=== PATIENT | female | born 2000 | race African-American/Black ===

== ENCOUNTER 2022-01-04 17:58 | Emergency (ER) | payer OTHER, SELFPAY ==
--- NOTE | ~2022-01-04 | US_ITS ---
EXAMINATION: US OB <= 14 weeks fetus INDICATION: Ectopic . Syncope, cramping, light spotting. TECHNIQUE: Sonography of the pelvis was performed by transabdominal and transvaginal techniques. COMPARISON: None. RESULT: LMP October 2021. Uterus: - Orientation: Anteverted - Size: 9.7 x 6.2 x 6.4 cm - Myometrium: Homogeneous echogenicity . Gestation: - Intrauterine gestational sac: Single present - Yolk sac: Present, not measured. - Embryo: Single present - [place] rump length: 0.9 cm, corresponding gestational age 7 weeks, 0 days -Gestational heart rate: present 130 bpm -Subgestational hematoma: Absent Right ovary: - Size : 4.3 x 1.4 x 2.0 cm - Normal sonographic appearance with physiologic follicles. Left ovary: - Size: 2.8 x 3.2 x 2.9 cm - Normal sonographic appearance with physiologic follicles. Pelvis free fluid: None. IMPRESSION: Single, live intrauterine gestation. Estimated Gestational Age: 7 weeks, 0 days by crown rump length. MYKE by ultrasound 08/23/2022. Reviewed, dictated and finalized at location [facility]. IMPRESSION: Single, live intrauterine gestation. Estimated Gestational Age: 7 weeks, 0 days by crown rump length. MYKE by ultras ound 08/23/2022.
[2022-01-04 18:07] VITALS: BP 120/67; PULSE 65; RESP 20; TEMP 36.9; O2SAT 98
--- NOTE | 2022-01-04 18:10 | ECG_ITS ---
Measurements Intervals [place] Rate: 68 P: 4 AR: 127 QRS: 56 QRSD: 98 T: 39 QT: 391 QTc: 417 Interpretive Statements SINUS RHYTHM BASELINE ARTIFACT- I, II, III, AVR, AVL, AVF, V3-V6 NORMAL ECG Electronically Signed On 01-04-2022 20:53:59 CDT by Roby Choudhury D.O.
--- NOTE | 2022-01-04 18:11 | ED.SYNCOPE ---
HPI - Syncope General Chief Complaint: Syncope Stated Complaint: VB PREG SYNCOPAL EVENT Time Seen by Provider: 01/04/22 18:11 Source: patient and RN notes reviewed Mode of arrival: ambulatory Limitations: no limitations History of Present Illness HPI narrative: 21 years old -[place] female came from home by private car, dropped her off, is not available right now. She is telling me that she started having lower abdominal pain bilaterally today, like labor contraction, patient reports last menstrual cycle October 2021, tested positive for last week, unknown duration, did not see SECTION REPAIRER yet. Patient reports having vaginal bleeding earlier today and yesterday with small blood clots. Patient did not tell me anything about syncope or blacking out. She denies any fever, chills, nausea, vomiting, diarrhea, constipation, urinary symptoms. Related Data Allergies Allergy/AdvReac Type Severity Reaction Status Date / Time No Known Drug Allergies Allergy Unknown Verified 01/04/22 18:56 Review of Systems Review of Systems: All systems reviewed & are unremarkable except as noted in HPI and below Exam Narrative: General appearance: Well-developed, well-nourished, patient is vague, whispering pointing to her lower belly Skin: Normal color Head: Normocephalic, nontraumatic Eyes: Clear conjunctiva ENT: Oropharynx normal, ears normal, nose normal Neck: Supple, nontender Chest and respiratory: Airway patent, no respiratory distress, no accessory muscle use Heart: Regular rate/rhythm Abdomen: Soft, diffuse tenderness lower abdomen bilaterally mainly on the right lower quadrant no organomegaly, quiet bowel sounds Vascular: Normal peripheral pulses, normal capillary refill. Musculoskeletal: Normal range of motion, nontender back Neurologic: Alert and oriented ?3, COMMERCIAL PRINT SALESMAN is normal as tested, no gross motor deficit Course Reevaluation(s) Reevaluation #1: Patient declined pelvic examination. she is planning to see her SECTION REPAIRER soon. She would like to leave as soon as possible, does not want a wait for urine analysis. Vital Signs Vital signs: Vital Signs Temperature 36.9 C 01/04/22 18:07 Pulse Rate 65 01/04/22 18:07 Respiratory Rate 20 01/04/22 18:07 Blood Pressure 120/67 01/04/22 18:07 Pulse Oximetry 98 01/04/22 18:07 Temperature 36.9 C 01/04/22 18:07 Pulse Rate 74 01/04/22 21:02 Respiratory Rate 14 01/04/22 21:02 Blood Pressure 113/65 01/04/22 21:02 Pulse Oximetry 100 01/04/22 21:02 MDM - Syncope Lab Data Result diagrams: 01/04/22 18:12 01/04/22 18:26 Labs: Lab Results 01/04/22 01/04/22 01/04/22 Range/Units 18:12 18:26 18:37 WBC 9.1 (4.5-10.0) K/mm3 RBC 4.64 (4.2-5.4) M/mm3 Hgb 13.1 (12.0-15.0) g/dL Hct 41.3 (37.0-47.0) % MCV 89.0 (80-100) fl MCH 28.2 (26-34) pg MCHC 31.7 L (32-36) g/dl RDW 14.0 (11.5-14.5) % Plt Count 390 H (150-375) k/mm3 MPV 10.0 (7.4-10.4) fl Immature Gran % (Auto) 0.2 (0-0.5) % Neut % (Auto) 61.3 (45.5-73.1) % Lymph % (Auto) 27.8 (18.3-44.2) % [place] % (Auto) 9.5 H (2.6-8.5) % Eos % (Auto) 0.8 (0-4.4) % Baso % (Auto) 0.4 (0.2-1.2) % Lymph # (Auto) 2.54 (0.9-3.2) K/mm3 [place] # (Auto) 0.9 H (0.1-0.6) K/mm3 Eos # (Auto) 0.1 (0-0.3) K/mm3 Baso # (Auto) 0.0 (0.0-0.1) K/mm3 Abs Immat Gran (auto) 0.02 (0.00-0.031) K/mm3 Absolute Neuts (auto) 5.6 (1.3-6.7) K/mm3 Absolute Nucleated RBC 0.0 (0.0-0.012) K/mm3 Nucleated RBC % 0.0 (0.0-0.2) % Sodium 136 L (137-145) mmol/L Potassium 3.9 (3.4-5.0) mmol/L Chloride 103 (98
[2022-01-04 18:18] LABS: Basophils Percent Auto 0.4 % (0.2-1.2); Eosinophils Absolute Auto 0.1 K/mm3 (0-0.3); Eosinophils Percent Auto 0.8 % (0-4.4); Hematocrit 41.3 % (37.0-47.0); Hemoglobin 13.1 g/dL (12.0-15.0); Immature Granulocyte Absolute 0.02 K/mm3 (0.00-0.031); Immature Granulocyte Percent A 0.2 % (0-0.5); Lymphocytes Absolute Auto 2.54 K/mm3 (0.9-3.2); Lymphocytes Percent Auto 27.8 % (18.3-44.2); Mean Corpuscular HGB Conc 31.7 g/dl (32-36); Mean Corpuscular Hemoglobin 28.2 pg (26-34); Monocytes Absolute Auto 0.9 K/mm3 (0.1-0.6); Monocytes Percent Auto 9.5 % (2.6-8.5); Neutrophils Absolute Auto 5.6 K/mm3 (1.3-6.7); Neutrophils Percent Auto 61.3 % (45.5-73.1); Platelet Count Result 390 k/mm3 (150-375); Red Blood Count 4.64 M/mm3 (4.2-5.4); White Blood Count 9.1 K/mm3 (4.5-10.0)
[2022-01-04 18:41] LABS: Alanine Aminotransferase 14 U/L (6-35); Albumin Level 4.3 g/dL (3.5-5.1); Alkaline Phosphatase 73 U/L (38-126); Anion Gap 12 mmol/L (8-16); Aspartate Amino Transferase 19 U/L (14-36); Bilirubin,Total 0.4 mg/dL (0.2-1.3); Blood Urea Nitrogen 9 mg/dL (7-17); Calcium 9.2 mg/dL (8.4-10.2); Carbon Dioxide 21 mmol/L (22-30); Chloride 103 mmol/L (98-107); Estimated CRCL calculation 98 ml/min; Estimated Glomerular Filt Rate > 60; Glucose 91 mg/dL (65-110); Potassium 3.9 mmol/L (3.4-5.0); Sodium 136 mmol/L (137-145)
[2022-01-04 20:51] LABS: Appearance Urine Clear (Clear); Bilirubin Urine Negative (Negative); Blood Urine Negative (Negative); Color Urine Yellow (Yellow); Glucose Urine UA Negative (Negative); Ketones Urine Negative (Negative); Leukocyte Esterase Ur Trace LEU/UL (Negative); Nitrate Urine Negative (Negative); Protein Urine Negative (Negative); Urobilinogen Urine 0.2 mg/dL (<2.0); pH Urine 6.5 (5.0-9.0)
[2022-01-04 20:56] LABS: Add Urine Microscopic? YES; Bacteria Urine Trace /hpf; Mucus Urine Rare /lpf; RBC Urine 0-2 /hpf (0-2); Squamous Epithelial Cell Urine Many /hpf (Few); WBC Urine 0-3 /hpf
[2022-01-04 21:02] VITALS: BP 113/65; PULSE 74; RESP 14; O2SAT 100
== END 2022-01-04 21:03 | disposition home or self-care (01) ==
PROVIDERS: Emergency Medicine; Emergency Provider Emergency Medicine
DX: O26.891 Other specified pregnancy related conditions, first trimester (principal); R10.30 Lower abdominal pain, unspecified; Z3A.01 Less than 8 weeks gestation of pregnancy
CPT/HCPCS: 36415; 76801; 80053; 81001; 81025; 84702; 85025; 85461; 93005; 99284

== ENCOUNTER 2022-02-06 10:47 | Emergency (ER) | payer OTHER, SELFPAY ==
--- NOTE | ~2022-02-06 | US_ITS ---
EXAMINATION: US OB <= 14 weeks fetus DATE: 02/06/2022 12:03 INDICATION: Vaginal bleeding. Suprapubic pain. TECHNIQUE: Real-time transabdominal pelvic ultrasound was performed. COMPARISON: None. FINDINGS: The uterus measures 9.9 x 7.0 x 7.9 cm. There is an intrauterine gestational sac. The crown rum p length measures 1.9 cm, which correlates with an estimated gestational age of 8 weeks and 3 day(s) (+/-) 5 day(s). heart motion is not identified by M-mode Doppler. The right ovary measures 4.7 x 2.1 x 1.4 cm. The left ovary measures 3.8 x 2.8 x 2.4 cm. There is no free fluid in the pelvis. IMPRESSION: 1. demise. Reviewed, dictated and finalized at location [facility]. IMPRESSION: 1. demise.
[2022-02-06 10:50] VITALS: BP 128/86; PULSE 85; RESP 16; O2SAT 100
--- NOTE | 2022-02-06 10:56 | ED.PREGNANCY ---
HPI - General Chief complaint: Vaginal Bleeding Stated complaint: Vaginal bleeding 11 wks Time Seen by Provider: 02/06/22 10:48 History of Present Illness HPI Narrative: Patient is a 21-year-old female G4, P2 who is currently about 11 weeks by her last menstrual cycle of November 16 here for evaluation of abdominal pain and vaginal bleeding for the past day. Patient states that she has had pain in her left lower quadrant/suprapubic region that has been intermittent but mild over the past week that worsened yesterday acutely. She noticed vaginal spotting yesterday and that has now progressed to passing blood clots. Denies fevers, chills, nausea, vomiting. Patient does not desire to carry to term and has [facility] appointment [facility]. Related Data Allergies Allergy/AdvReac Type Severity Reaction Status Date / Time No Known Drug Allergies Allergy Unknown Verified 01/04/22 18:56 Review of Systems Review of Systems: Gen: Denies fevers or chills Eyes: Denies eye pain or visual change ENT: Denies congestion Respiratory: Denies shortness of breath or cough CV: Denies chest pain or palpitations GI: Reports abdominal pain. Denies nausea, emesis or diarrhea reports vaginal bleeding. Denies burning, urgency, frequency or hematuria Musculoskeletal: Denies back pain or muscle pain Neuro: Denies numbness, tingling, weakness or focal weakness Skin: Denies rash Except as documented, all other systems reviewed and negative Exam Narrative: APPEARANCE: Uncomfortable appearing. Head: Normocephalic and atraumatic. EYES: PERRLA/EOMI, conjunctivae clear NOSE: No nasal drainage EARS: External ear normal in appearance THROAT: Oropharynx is clear. Mucous membranes are moist. NECK: Supple. No adenopathy, no masses. RESPIRATORY: Airway patent, respirations nonlabored. Clear to auscultation bilaterally, no rales, rhonchi, wheezing. CARDIOVASCULAR: Regular rate and rhythm without murmurs, rubs, or gallops. ABDOMINAL: Gravid uterus. Tender to palpation in suprapubic region. : scant amount of blood in vaginal vault with small clots noted, performed with warehouse packer Roxanna MUSCULOSKELETAL: Extremities are warm and well-perfused. Moves all extremities well. No edema. NEURO: Normal speech. No focal neurologic deficits. SKIN: Skin is warm and dry. No rashes. PSYCHIATRIC: Normal affect/mood. Course Consultations Consultation #1: Spoke with Dr. Simms, CUTTING DEPARTMENT SUPERVISOR, recommend serial quants and will see in office this week Date: 02/06/22 Time: 14:05 Vital Signs Vital signs: Vital Signs Pulse Rate 85 02/06/22 10:50 Respiratory Rate 16 02/06/22 10:50 Blood Pressure 128/86 02/06/22 10:50 Pulse Oximetry 100 02/06/22 10:50 Oxygen Delivery Room Air 02/06/22 10:50 Pulse Rate 80 02/06/22 14:34 Respiratory Rate 16 02/06/22 14:34 Blood Pressure 122/74 02/06/22 14:34 Pulse Oximetry 100 02/06/22 14:34 Oxygen Delivery Room Air 02/06/22 10:50 MDM - OB/Uterine Contractions MDM Narrative Medical decision making narrative: 19-year-old female who is currently about 11 weeks here for evaluation of vaginal bleeding and lower abdominal pain over the past day. Here she is nontoxic-appearing, exam reveals a small amount of blood in her vaginal vault. Hemoglobin hematocrit stable at 12.6/38.7. Her quant is only 4768, not consistent with gestational age. Ultrasound with evidence of demise. This is not a desired , patient [facility], but did discuss case with Dr. Simms, CUTTING DEPARTMENT SUPERVISOR, who will see the patient in office this week for serial quant. Patient updated, she was given reasons to return to the ED and she voiced understanding. Lab Data Result diagrams: 02/06/22 11:15 Labs: Lab Results 02/06/22 02/06/22 02/06/22 Range/Units 11:15 11:15 11:15 WBC 6.8 (4.5-10.0) K/mm3 RBC 4.35
[2022-02-06 11:31] LABS: Basophils Percent Auto 0.3 % (0.2-1.2); Eosinophils Percent Auto 0.4 % (0-4.4); Hematocrit 38.7 % (37.0-47.0); Hemoglobin 12.6 g/dL (12.0-15.0); Immature Granulocyte Absolute 0.02 K/mm3 (0.00-0.031); Immature Granulocyte Percent A 0.3 % (0-0.5); Lymphocytes Absolute Auto 1.82 K/mm3 (0.9-3.2); Lymphocytes Percent Auto 26.8 % (18.3-44.2); Mean Corpuscular HGB Conc 32.6 g/dl (32-36); Mean Platelet Volume 9.5 fl (7.4-10.4); Monocytes Absolute Auto 0.5 K/mm3 (0.1-0.6); Monocytes Percent Auto 6.9 % (2.6-8.5); Neutrophils Absolute Auto 4.4 K/mm3 (1.3-6.7); Neutrophils Percent Auto 65.3 % (45.5-73.1); Platelet Count Result 299 k/mm3 (150-375); Red Blood Count 4.35 M/mm3 (4.2-5.4); Red Cell Distribution Width 14.1 % (11.5-14.5); White Blood Count 6.8 K/mm3 (4.5-10.0)
[2022-02-06 12:01] LABS: Appearance Urine Slightly Cloudy (Clear); Bilirubin Urine Negative (Negative); Blood Urine 3+ (Negative); Glucose Urine UA Negative (Negative); Ketones Urine Negative (Negative); Leukocyte Esterase Ur Trace LEU/UL (Negative); Nitrate Urine Negative (Negative); Protein Urine Trace mg/dL (Negative)
[2022-02-06 12:11] LABS: Mucus Urine Few /lpf; RBC Urine >75 /hpf (0-2); Squamous Epithelial Cell Urine Occasional /hpf (Few)
[2022-02-06 12:16] LABS: Add Urine Microscopic? YES; Color Urine Dark Yellow (Yellow)
[2022-02-06] MEDS: ACETAMINOPHEN 325 MG TABLET 650 MG PO (12:46)
[2022-02-06 14:34] VITALS: BP 122/74; PULSE 80; RESP 16; O2SAT 100
== END 2022-02-06 14:35 | disposition home or self-care (01) ==
PROVIDERS: Physician Assistant; Emergency Provider Emergency Medicine
DX: O02.1 Missed abortion (principal); Z3A.01 Less than 8 weeks gestation of pregnancy
CPT/HCPCS: 36415; 76801; 81001; 84702; 85025; 85461; 87086; 99284; A9270

== ENCOUNTER 2022-02-07 17:43 | Emergency (ER) | payer OTHER, SELFPAY ==
--- NOTE | ~2022-02-07 | XR_ITS ---
EXAMINATION: XR chest 2V Exam Date/Time: 02/07/2022 19:30 CDT HISTORY: syncope Comparison: None available. RESULT: Lines, tubes, and devices: None. Lungs and pleura: Clear. Cardiomediastinal silhouette: Normal. Other: No acute osseous or upper abdominal finding. IMPRESSION: No acute cardiopulmonary process. Reviewed, dictated and finalized at location [facility].
[2022-02-07 17:47] VITALS: BP 115/68; PULSE 72; RESP 16; TEMP 36.6; O2SAT 99
[2022-02-07 18:37] LABS: Basophils Percent Auto 0.4 % (0.2-1.2); Eosinophils Absolute Auto 0.1 K/mm3 (0-0.3); Eosinophils Percent Auto 0.5 % (0-4.4); Hematocrit 36.4 % (37.0-47.0); Hemoglobin 11.9 g/dL (12.0-15.0); Immature Granulocyte Absolute 0.03 K/mm3 (0.00-0.031); Immature Granulocyte Percent A 0.3 % (0-0.5); Lymphocytes Absolute Auto 1.88 K/mm3 (0.9-3.2); Mean Corpuscular HGB Conc 32.7 g/dl (32-36); Mean Corpuscular Hemoglobin 28.6 pg (26-34); Mean Corpuscular Volume 87.5 fl (80-100); Mean Platelet Volume 9.3 fl (7.4-10.4); Monocytes Absolute Auto 0.8 K/mm3 (0.1-0.6); Monocytes Percent Auto 7.3 % (2.6-8.5); Neutrophils Absolute Auto 7.7 K/mm3 (1.3-6.7); Neutrophils Percent Auto 73.5 % (45.5-73.1); Platelet Count Result 288 k/mm3 (150-375); Red Blood Count 4.16 M/mm3 (4.2-5.4); White Blood Count 10.5 K/mm3 (4.5-10.0)
[2022-02-07] MEDS: ONDANSETRON INJ 4 MG/2 ML VIAL IV PUSH (19:01)
--- NOTE | 2022-02-07 19:15 | ECG_ITS ---
Measurements Intervals [place] Rate: 75 P: 58 IN: 145 QRS: 38 QRSD: 106 T: 35 QT: 398 QTc: 447 Interpretive Statements SINUS RHYTHM INCOMPLETE RIGHT BUNDLE BRANCH BLOCK [90+ ms QRS DURATION, TERMINAL R IN V1/V2, 40+ ms S IN I/aVL/V4/V5/V6] ABNORMAL ECG COMPARED TO ECG 01/04/2022 18:14:46 INCOMPLETE RIGHT BUNDLE-BRANCH BLOCK NOW PRESENT Electronically Signed On 02-08-2022 12:20:59 CDT by Rajeev Us M.D.
--- NOTE | 2022-02-07 19:16 | ED.PREGNANCY ---
HPI - General Chief complaint: Vaginal Bleeding <Niyah Johns PA-C - Last Filed: 02/07/22 21:43> Stated complaint: , bleeding <Niyah Johns PA-C - Last Filed: 02/07/22 21:43> Time Seen by Provider: 02/07/22 18:31 <Niyah Johns PA-C - Last Filed: 02/07/22 21:43> Source: patient <LINDSAY Rosado Last Filed: 02/07/22 21:43> Mode of arrival: ambulatory <LINDSAY Rosado Last Filed: 02/07/22 21:43> Limitations: no limitations <Niyah Johns PA-C - Last Filed: 02/07/22 21:43> History of Present Illness HPI Narrative: This is a 21 year old that presents to the ER for vaginal bleeding and pelvic cramping. Reports she was seen in the ER for this yesterday and had an US which showed demise. She had worsening bleeding and cramping today which prompted her to be seen. Also reports she had a syncopal episode while in the car. Reports she starting to feel very lightheaded due to the bleeding and passed out briefly. Does report history of syncopal episodes. Denies chest pain or shortness of breath. <Niyah Johns PA-C - Last Filed: 02/07/22 21:43> Related Data Allergies/Adverse reactions: Allergies Allergy/AdvReac Type Severity Reaction Status Date / Time No Known Drug Allergies Allergy Unknown Verified 01/04/22 18:56 <Niyah Johns PA-C - Last Filed: 02/07/22 21:43> Review of Systems Review of Systems: CONSTITUTIONAL: Denies fever CARDIOVASCULAR: Denies chest pain RESPIRATORY: Denies dyspnea. GASTROINTESTINAL: Reports pelvic pain, nausea, vomiting <LINDSAY Rosado Last Filed: 02/07/22 21:43> All systems reviewed & are unremarkable except as noted in HPI and below <LINDSAY Rosado Last Filed: 02/07/22 21:43> [facility] Past Medical History Medical History: Medical History (Updated 02/07/22 @ 21:31 by Niyah Johns PA-C) No active medical problems <Niyah Johns PA-C - Last Filed: 02/07/22 21:43> Social History Social History: Social History (Updated 02/07/22 @ 19:19 by Niyah Johns PA-C) Smoking status: Never smoker Substance use: current Substance use type: marijuana <Niyah Johns PA-C - Last Filed: 02/07/22 21:43> Exam Narrative: GENERAL: Well-appearing, well-nourished, and in no acute distress. HEAD: Normocephalic, atraumatic. EYES: EOMI. CHEST: Clear to auscultation. No respiratory distress. No wheezes rales or rhonchi HEART: Regular rate and rhythm. No murmur heard. Normal peripheral pulses. ABDOMEN: Soft, nondistended, normal active bowel sounds. Tender to palpation of the lower abdomen/pelvis without guarding EXTREMITIES: Normal range of motion. No edema. SKIN: Warm, dry, no rash. NEURO: No focal deficits. Alert and oriented x3. PSYCH: Normal mood and affect PELVIC EXAM: Products of conception noted in the vaginal vault. This was removed with ring forceps. After removal small amount of bright red blood noted in the vaginal vault <Niyah Johns PA-C - Last Filed: 02/07/22 21:43> Course TRACER BULLET SECTION SUPERVISOR/PA Physician Supervision For this patient encounter, I reviewed the TRACER BULLET SECTION SUPERVISOR or PA documentation, treatment plan, and medical decision making <Gunner Powers MD - Last Filed: 02/07/22 22:01> Consultations Consultation #1: Spoke with Dr. Simms about patient and workup who will follow up in clinic <Niyah Johns PA-C - Last Filed: 02/07/22 21:43> Date: 02/07/22 <Niyah Johns PA-C - Last Filed: 02/07/22 21:43> Vital Signs Vital signs: Vital Signs Temperature 97.8 F 02/07/22 17:47 Pulse Rate 72 02/07/22 17:47 Respiratory Rate 16 02/07/22 17:47 Blood Pressure 115/68 02/07/22 17:47 Pulse Oximetry 99 02/07/22 17:47 Oxygen Delivery Room Air 02/07/22 17:47 Temperature 97.8 F 02/07/22 17:47 Pulse Rate 84 02/07/22 20:22 Respiratory Rate 16 02/07/22 20:22 Blood Pressure 122/76 02/07/22 20:22 Pulse Oximetry
[2022-02-07 19:27] LABS: Alanine Aminotransferase 12 U/L (6-35); Albumin Level 4.2 g/dL (3.5-5.1); Alkaline Phosphatase 60 U/L (38-126); Anion Gap 10 mmol/L (8-16); Aspartate Amino Transferase 23 U/L (14-36); Bilirubin,Total 0.5 mg/dL (0.2-1.3); Blood Urea Nitrogen 12 mg/dL (7-17); Carbon Dioxide 23 mmol/L (22-30); Chloride 102 mmol/L (98-107); Estimated CRCL calculation 110 ml/min; Estimated Glomerular Filt Rate > 60; Glucose 104 mg/dL (65-110); Potassium 3.5 mmol/L (3.4-5.0); Sodium 135 mmol/L (137-145)
[2022-02-07 19:39] LABS: Troponin I < 0.012 ng/mL (0.000-0.034)
[2022-02-07] MEDS: SODIUM CHLORIDE 0.9% IV 1,000 ML 999 ML IV CONT (19:55)
--- NOTE | 2022-02-07 20:06 | PC.NURSE ---
demise contents put into specimen container and taped shut. 3 pt sticker applied and print out of order by charge taped to container. Specimen walked down to lab by MARIANNA Castrejon.
[2022-02-07 20:22] VITALS: BP 122/76; PULSE 84; RESP 16; O2SAT 99
[2022-02-07 22:13] VITALS: BP 115/81; PULSE 88; RESP 18; O2SAT 100
== END 2022-02-07 20:05 | disposition home or self-care (01) ==
PROVIDERS: Emergency Medicine; Physician Assistant; Emergency Provider Emergency Medicine; PCP Family Medicine
DX: O03.9 Complete or unspecified spontaneous abortion without complication (principal); I45.10 Unspecified right bundle-branch block
CPT/HCPCS: 36415; 71046; 80053; 84484; 85025; 88305; 93005; 96365; 96366; 96375; 99284; J0131; J2405; J7030

== ENCOUNTER 2022-07-09 04:39 | Emergency (ER) | payer OTHER, SELFPAY ==
[2022-07-09] VITALS (21 sets, daily range): BP systolic 91–136; BP diastolic 46–83; PULSE 59–65; RESP 14; TEMP 36.4–36.8; O2SAT 100
--- NOTE | ~2022-07-09 | US_ITS ---
Pelvic ultrasound. Clinical History: First trimester , pelvic pain, evaluate for ectopic Technique: Realtime transabdominal and transvaginal scanning of the pelvis was performed. Color flow Doppler and Doppler spectral analysis were performed. Findings: The uterus is anteverted, and contains an intrauterine gestational sac. [place]-rump length o f 4 mm corresponds to estimated gestational age of 6 weeks 0 days. heart rate is 113 bpm. Small subchorionic hemorrhage noted. The right ovary measures 2.4 x 1.6 x 2.0 cm. No significant right ovarian or adnexal mass is seen. The left ovary measures 2.7 x 1.8 x 2.2 cm. No significant left ovarian or adnexal mass is seen. There is no evidence of free fluid in the cul de sac. Impression: Live intrauterine gestation with estimated gestational age of 6 weeks 0 days. heart rate is 113 bpm. Small subchorionic hemorrhage. Reviewed, dictated and finalized at [facility]. ATIONS SUPPORT SPECIALIST Impression: Live intrauterine gestation with estimated gestational age of 6 weeks 0 days. F etal heart rate is 113 bpm. Small subchorionic hemorrhage.
--- NOTE | 2022-07-09 04:57 | ED.GENADULT ---
HPI - General Adult General Chief complaint: Abdominal Pain <Juan Storey DO - Last Filed: 07/09/22 06:48> Stated complaint: ABD PAIN, N/V, 6 WKS <Juan Storey DO - Last Filed: 07/09/22 06:48> Time Seen by Provider: 07/09/22 04:42 <Juan Storey DO - Last Filed: 07/09/22 06:48> History of Present Illness HPI narrative: 22-year-old female who is currently but unsure of gestational age and unsure of LMP presents for evaluation of 2 to 3 days of vomiting and lower abdominal pain. [facility] but was told it was too early to have an ultrasound. They were also unsure and unable to determine the age of the baby. <Juan Storey DO - Last Filed: 07/09/22 06:48> Related Data Allergies/adverse reactions: Allergies Allergy/AdvReac Type Severity Reaction Status Date / Time No Known Drug Allergies Allergy Unknown Verified 07/09/22 04:44 <Juan Storey DO - Last Filed: 07/09/22 06:48> Review of Systems Review of Systems: CONSTITUTIONAL: Denies fever, chills, or sweats. EYES: Denies visual changes, redness, or discharge. ENT: Denies rhinorrhea, congestion, sore throat, or otalgia. CARDIOVASCULAR: Denies chest pain, palpitations, or edema. RESPIRATORY: Denies cough or dyspnea. GASTROINTESTINAL: Denies abdominal pain, nausea, vomiting, or diarrhea. GENITOURINARY: Denies dysuria or hematuria. SKIN: Denies rash or itching. MUSCULOSKELETAL: Denies back pain, joint pain, or myalgia. NEUROLOGIC: Denies headache, numbness, or weakness. PSYCHIATRIC: Denies anxiety or depression. <Juan Storey DO - Last Filed: 07/09/22 06:48> [facility] Past Medical History Medical History: Medical History No active medical problems <Juan Storey DO - Last Filed: 07/09/22 06:48> Social History Social History: Social History Smoking status: Never smoker Substance use: current Substance use type: marijuana <Juan Storey DO - Last Filed: 07/09/22 06:48> Exam Narrative: GENERAL: Well-appearing, well-nourished, and in no acute distress. HEAD: Normocephalic, atraumatic. EYES: PERRLA and EOMI. ENT: Nares clear, no rhinorrhea or epistaxis. Mucous membranes moist. NECK: Supple. CHEST: Clear to auscultation. No respiratory distress. HEART: Regular rate and rhythm. No murmur heard. Normal peripheral pulses. ABDOMEN: Soft, nontender, nondistended, normal active bowel sounds. EXTREMITIES: Normal range of motion. No edema. SKIN: Warm, dry, no rash. NEURO: No focal deficits. Alert and oriented x3. PSYCH: Normal mood and affect. <Juan Storey, - Last Filed: 07/09/22 06:48> Course Course Emergency Course: Care turned over to myself at shift change seen and evaluated by myself agrees initial H&P currently receiving IV fluids waiting on ultrasound results Reviewed old records patient has a positive blood work from January 2022 Patient states she is feeling much better this time able to drink in ED with no emesis states she is ready for discharge. Patient states she has a [facility] follow-up in [place] on July 15 Discussed with patient results of workup and diagnosis. Discussed need for follow-up with primary care, proper use of medication, and reasons to return to the emergency department. Patient understands and agrees to current treatment plan discussed subchorionic hemorrhage discussed need for pelvic rest all questions answered <Norris Leon DO - Last Filed: 07/09/22 09:53> Vital Signs Vital signs: Vital Signs Temperature 97.6 F 07/09/22 04:38 Pulse Rate 65 07/09/22 04:38 Respiratory Rate 14 07/09/22 04:38 Blood Pressure 107/59 L 07/09/22 04:38 Pulse Oximetry 100 07/09/22 04:38 Oxygen Delivery Room Air 07/09/22 04:38 Temperature 97
[2022-07-09 04:58] LABS: Basophils Percent Auto 0.3 % (0.2-1.2); Eosinophils Percent Auto 0.2 % (0-4.4); Hematocrit 38.6 % (37.0-47.0); Hemoglobin 12.8 g/dL (12.0-15.0); Immature Granulocyte Absolute 0.01 K/mm3 (0.00-0.031); Immature Granulocyte Percent A 0.2 % (0-0.5); Lymphocytes Absolute Auto 1.04 K/mm3 (0.9-3.2); Lymphocytes Percent Auto 18.1 % (18.3-44.2); Mean Corpuscular HGB Conc 33.2 g/dl (32-36); Mean Corpuscular Hemoglobin 28.5 pg (26-34); Mean Platelet Volume 9.2 fl (7.4-10.4); Monocytes Absolute Auto 0.9 K/mm3 (0.1-0.6); Neutrophils Absolute Auto 3.8 K/mm3 (1.3-6.7); Neutrophils Percent Auto 65.2 % (45.5-73.1); Platelet Count Result 353 k/mm3 (150-375); Red Blood Count 4.49 M/mm3 (4.2-5.4); Red Cell Distribution Width 13.6 % (11.5-14.5); White Blood Count 5.8 K/mm3 (4.5-10.0)
[2022-07-09 05:05] LABS: Alanine Aminotransferase 18 U/L (6-35); Alkaline Phosphatase 81 U/L (38-126); Anion Gap 9 mmol/L (8-16); Aspartate Amino Transferase 27 U/L (14-36); Bilirubin,Total 1.6 mg/dL (0.2-1.3); Blood Urea Nitrogen 11 mg/dL (7-17); Calcium 9.1 mg/dL (8.4-10.2); Carbon Dioxide 24 mmol/L (22-30); Chloride 99 mmol/L (98-107); Estimated CRCL calculation 111 ml/min; Estimated Glomerular Filt Rate > 60; Glucose 100 mg/dL (65-110); Potassium 3.7 mmol/L (3.4-5.0); Sodium 132 mmol/L (137-145)
[2022-07-09] MEDS: LACTATED RINGERS 1,000 ML 999 ML IV CONT ×2 (05:15→08:01)
[2022-07-09] MEDS: ONDANSETRON INJ 4 MG/2 ML VIAL IV PUSH (05:15)
[2022-07-09 05:19] LABS: Appearance Urine Slightly Cloudy (Clear); Bilirubin Urine 1+ (Negative); Blood Urine Trace-intact (Negative); Color Urine Yellow (Yellow); Glucose Urine UA Negative (Negative); Ketones Urine 4+ mg/dL (Negative); Leukocyte Esterase Ur Negative LEU/UL (Negative); Nitrate Urine Negative (Negative); Protein Urine 1+ mg/dL (Negative); Specific Grav Ur >= 1.030 (1.001-1.035)
[2022-07-09 05:27] LABS: Bacteria Urine Trace /hpf; Mucus Urine Heavy /lpf; Squamous Epithelial Cell Urine Many /hpf (Few)
[2022-07-09 05:28] LABS: Add Urine Microscopic? YES
[2022-07-09 05:55] LABS: SPREG INTERNAL CONTROL Positive; Serum Qual hCG Positive
[2022-07-09] MEDS: diphenhydrAMINE HCl INJ 50 MG/ML VIAL 25 MG IV PUSH (06:06)
--- NOTE | 2022-07-09 07:12 | PC.NURSE ---
Patient report received from SHERRY Roberts. All questions answered and care of patient assumed.
--- NOTE | 2022-07-09 07:33 | PC.NURSE ---
Patient off unit to US.
--- NOTE | 2022-07-09 09:18 | PC.NURSE ---
Per ED provider verbal order patient PO challenged. Able to tolerate a full cup of water without vomiting. She did eat a jayna cracker but stated it made her feel slightly nauseated.
== END 2022-07-09 10:04 | disposition home or self-care (01) ==
PROVIDERS: Emergency Medicine; Emergency Provider Emergency Medicine; PCP Family Medicine
DX: O21.9 Vomiting of pregnancy, unspecified (principal); Z3A.01 Less than 8 weeks gestation of pregnancy
CPT/HCPCS: 36415; 76801; 80053; 81001; 84702; 84703; 85025; 87086; 87088; 96361; 96374; 96375; 99284; J1200; J2405; J7120